=== PATIENT | male | born 1955 | race Caucasian/White ===

== ENCOUNTER 2024-05-01 06:37 | Emergency (ER) | payer OTHER, SELFPAY ==
[2024-05-01 06:41] VITALS: BP 130/91
--- NOTE | 2024-05-01 07:34 | ED.GENMED ---
History of Present Illness
General
Chief Complaint: Musculo-Skeletal Complaint
Source: patient
Exam Limitations: none
Time Seen by Provider: 05/01/24 07:11
Nursing documentation reviewed up to this point in time: agreed with
History of Present Illness
History of Present Illness:
Patient is a 68-year male who presents to the ER for evaluation of left heel pain. Yesterday he was on his counter in his garage approximately 3 feet high when he lost his balance and jumped off. He was wearing work boots at the time and landed
flat on his feet. He complains of pain to the left heel. He reports his heel only hurts when he bears weight. He denies any other injuries. He denies any back pain. He landed straight up and down on his heels. He did not denies hitting his
head. Denies any neck pain. He denies any swelling to his ankle /heel /foot.
He has been taking Ibuprofen .
Past History
Past History
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
ED Past Surgical History: Cardiac (PTCA with stent 2008)
Social History
Tobacco: Smoker
Alcohol: Daily
Personal:
Living: with family
Family History
Family History: Early CAD and Cancer (Colon cancer)
Review of Systems
Review of Systems
Allergies reviewed?: Yes
All Other Systems: ROS reviewed and negative except as documented in HPI and ROS
Constitutional: Reports no symptoms
Musculoskeletal: Reports other (left heel pain )
Skin: Reports no symptoms
Neurological: Reports no symptoms
Psychiatric: Reports no symptoms
Phy Exam
General Physical Exam
General Presentation: no apparent distress
General age: appears stated age
General Skin: warm and dry
General Habitus: normal
General Mental: alert
General Hydration: appears well hydrated
Neurological Exam
Neurological Exam: alert and oriented x3
Musculoskeletal Exam
Musculoskeletal Exam: other (lle with strong pulses no obvious swelling to left heel non tender ; achilles tendon in tact , no bony foot/ankle pain on palpation )
Skin Exam
Skin Exam: normal color and warm/dry
Psychiatric Exam
Psychiatric Exam: normal mood/affect
Course
Orders/Labs/Results
Orders:
Orders
05/01/24 06:44
Foot, Left 3 View [CR Foot - Left Min 3 Views] Urgent
Comment: pain in mid heel with walking
Reason For Exam: jumped off bench, landed on lt heel
05/01/24 07:01
CR Heel/os Calcis - Left 2 Vw* Urgent
Comment:
Reason For Exam: pain
Vital Signs
Initial and Last Documented VS:
Initial Vital Signs
Temp Pulse Resp BP Pulse Ox
98.0 F 82 16 130/91 100
05/01/24 06:41 05/01/24 06:41 05/01/24 06:41 05/01/24 06:41 05/01/24 06:41
Last Documented Vital Signs
Temp Pulse Resp BP Pulse Ox
98.0 F 82 16 130/91 100
05/01/24 06:41 05/01/24 06:41 05/01/24 06:41 05/01/24 06:41 05/01/24 06:41
*Radiology
Radiology exam reviewed: radiology read reviewed
*Critical Care Note
Total Time (30-74mins, 75-104mins- exclusive of procedures): Not Applicable
ED Attending Note
-
Portions of this chart may have been created with voice recognition software.� Occasional wrong word or��sound alike� substitutions may have occurred due to the inherent limitations of voice recognition software.
Discharge Plan
Departure
Patient Disposition: Home (Routine Discharge)
Date of Disposition: 05/01/24
Time of Disposition: 09:00
Patient with high blood pressure during this ER visit?: Yes
Covid-19: Not Applicable
Discharge Problem:
Contusion
Instructions: Contusion (DC)
Prescriptions:
No Action
Multivitamin
1 tab PO DAILY
aspirin 81 MG tablet,delayed release (DR/EC)
81 mg PO DAILY
metoprolol tartrate 25 MG tablet
25 mg PO DAILY
Patient Comments:
Pt. unsure of dose
metronidazole 500 MG tablet
500 mg PO TID Qty: 12 0RF
levofloxacin 500 MG tablet
500 mg PO DAILY Qty: 4 0RF
tramadol 50 MG tablet
50 mg PO Q6 Qty: 7 0RF
hydrocodone-acetaminophen 5-325 mg tablet
1 tab PO Q8HPRN PRN (Reason: Pain) Qty: 10 0RF
Referrals:
Luis Borja MD [Family Provider] -
Damon Lambert MD [Active] -
Activity Restrictions/Additional Instructions:
As discussed x-rays were negative for fracture. Symptoms are likely contusion. Try to rest as much as possible ibuprofen as needed follow-up with orthopedics if needed. Return if any worsening of symptoms.
Interventions
Interventions:
*Risk Screen - Suicide Last Done: 05/01/24 06:41
*General Assessment Last Done: 05/01/24 07:55
*Neglect/Abuse Screening Last Done: 05/01/24 06:41
ED- Fall Risk Assessment Last Done: 05/01/24 07:55
*ED COVID-19 Vaccine History Last Done: 05/01/24 06:41
ED-Musculoskeletal Assessment Last Done: 05/01/24 07:55
Discharge Date and Time
Print Language: UKRAINIAN
[2024-05-01 07:55] VITALS: BMI 24.4
[2024-05-01 08:15] VITALS: BP 134/76
--- NOTE | 2024-05-01 09:22 | EDRN ---
Reviewed discharge instructions with patient. Verbalized understanding. Ambulated to lobby using crutches properly.
[2024-05-01 09:23] VITALS: BP 140/77
== END 2024-05-01 09:26 | disposition home or self-care (01) ==
LOC: EMR 06:37
PROVIDERS: EMERGENCY PHYSICIAN Emergency Medicine; FAMILY PHYSICIAN Family Medicine
DX: S90.32XA Contusion of left foot, initial encounter (principal); X50.1XXA Overexertion from prolonged static or awkward postures, initial encounter; I10 Essential (primary) hypertension; F17.200 Nicotine dependence, unspecified, uncomplicated
CPT/HCPCS: 99283; 73630; 73650

== ENCOUNTER 2024-11-30 06:21 | Day surgery (SDC) | payer OTHER, SELFPAY | END 2024-11-30 08:31 | disposition home or self-care (01) | LOC: GI 06:21 | PROVIDERS: ATTENDING PHYSICIAN Internal Medicine | DX: Z12.11 Encounter for screening for malignant neoplasm of colon (principal); D12.2 Benign neoplasm of ascending colon; D12.5 Benign neoplasm of sigmoid colon; K57.30 Diverticulosis of large intestine without perforation or abscess without bleeding; Z86.0100 Personal history of colon polyps, unspecified | CPT/HCPCS: 45385; 45380; 88305 ==